=== PATIENT | female | born 1950 | race Caucasian/White ===

== ENCOUNTER 2020-06-19 16:46 | Inpatient (IN) | payer MEDICARE ==
[2020-06-19] MEDS ORDERED: SODIUM CHLORIDE 0.9% 1,000 ML IV STA (16:59)
[2020-06-19] MEDS ORDERED: IBUPROFEN 400 MG TAB PO STA (17:25)
--- NOTE | 2020-06-19 17:34 | XR ---
EXAMINATION TYPE: XR chest 1V portable DATE OF EXAM: 06/19/2020 COMPARISON: NONE HISTORY: Fever. Weakness. TECHNIQUE: Single view FINDINGS: There is some coarsening of interstitial pulmonary markings. Thoracic aorta is atheromatous . There are no hilar masses. There is no pleural effusion. There is no gross heart failure. Bony thor ax is intact. IMPRESSION: Interstitial pulmonary density consistent with pulmonary fibrosis. No obvious heart failu re.
[2020-06-19 17:58] LABS: Basophils % (A) 1 %; Eosinophils # (A) 0.1 k/uL (0-0.7); Eosinophils % (A) 1 %; HCT 39.4 % (34.0-46.0); HGB 13.5 gm/dL (11.4-16.0); Lymphocytes # (A) 1.5 k/uL (1.0-4.8); Lymphocytes % (A) 32 %; MCH 29.7 pg (25.0-35.0); MCHC 34.2 g/dL (31.0-37.0); MCV 86.7 fL (80.0-100.0); Mean Platelet Volume 7.7; Monocytes # (A) 0.2 k/uL (0-1.0); Monocytes % (A) 3 %; Neutrophils # (A) 2.8 k/uL (1.3-7.7); Neutrophils % (A) 61 %; Platelet Count 149 k/uL (150-450); RBC 4.54 m/uL (3.80-5.40); WBC 4.6 k/uL (3.8-10.6)
--- NOTE | 2020-06-19 18:07 | ED ---
Fever HPI - General Chief Complaint: Fever Stated Complaint: RUNNING A FEVER 101.4 WEAKNESS Source: patient Mode of arrival: ambulatory Limitations: no limitations - History of Present Illness Initial Comments: Patient is a 69 -year-old female with no past mental history presents emergency department with reported weakness, fever and cold-like symptoms. She states that her symptoms became presents today however speaking with her daughter she states that she's been sick for at least 5 days. She has had a nonproductive cough and fatigue. She denies any sick contacts with similar symptoms. No contact with covid positive people. Denies history of underlying lung conditi ons. She did take Tylenol 30 minutes prior to hospital arrival. No nausea, vomiting or diarrhea. No chest pain. No other alleviating, precipitating or modifying factors - Related Data Home Medications Medication Instructions Recorded Confirmed Acetaminophen Tab [Tylenol] 650 mg PO Q4H PRN 06/19/20 06/19/20 Ibuprofen [Motrin Ib] 400 mg PO Q8H PRN 06/19/20 06/19/20 Allergies Allergy/AdvReac Type Severity Reaction Status Date / Time No Known Allergies Allergy Verified 06/19/20 19:15 Review of Systems ROS Statement: Those systems with pertinent positive or pertinent negative responses have been documented in the HPI. ROS Other: All systems not noted in ROS Statement are negative. Past Medical History Past Medical History: No Reported History History of Any Multi-Drug Resistant Organisms: None Reported Past Surgical History: Section, Orthopedic Surgery Additional Past Surgical History / Comment(s): right knee surgery Past Psychological History: No Psychological Hx Reported Smoking Status: Never smoker Past Alcohol Use History: None Reported Past Drug Use History: None Reported General Exam Limitations: no limitations Course Vital Signs 06/19/20 06/19/20 06/19/20 16:50 18:00 19:00 Temperature 99.8 F H Pulse Rate 123 H 113 H 105 H Respiratory 22 22 20 Rate Blood Pressure 150/85 144/77 151/87 O2 Sat by Pulse 94 L 94 L 95 Oximetry 06/19/20 20:00 Temperature Pulse Rate 102 H Respiratory 20 Rate Blood Pressure 130/70 O2 Sat by Pulse 96 Oximetry Medical Decision Making - Medical Decision Making Upon arrival the patient is placed into room 19. A thorough history and physical exam is performed. Peripheral IV is established. Patient was given a liter bolus of normal saline. Laboratories studies are conducted. D-dimer 1 .04. Urinalysis is positive for nitrite and many white blood cell clumps. Coronavirus is detected. Chest x-ray demonstrates interstitial pulmonary densities consistent with pulmonary fibrosis. CT of the patient's chest demonstrates bilateral patchy pneumonia. No evidence of pulmonary embolism. Results are discussed the patient. She is saturating 92% on room air. Did recommend hospitalization for patient did agree to this. Spoke with Dr. García who agree to admit the patient. Pulm will be placed on consult. Patient awaiting a bed on the floor - Lab Data Result diagrams: 06/19/20 17:41 06/19/20 17:41 Lab Results 06/19/20 06/19/20 06/19/20 Range/Units 17:41 17:41 17:41 WBC 4.6 (3.8-10.6) k/uL RBC 4.54 (3.80-5.40) m/uL Hgb 13.5 (11.4-16.0) gm/dL Hct 39.4 (34.0-46.0) % MCV 86.7 (80.0-100.0) fL MCH 29.7 (25.0-35.0) pg MCHC 34.2 (31.0-37.0) g/dL RDW 13.0 (11.5-15.5) % Plt Count 149 L (150-450) k/uL MPV 7.7 Neutrophils % 61 % Lymphocytes % 32 % Monocytes % 3 % Eosinophils % 1 % Basophils % 1 % Neutrophils # 2.8 (1.3-7.7) k/uL Lymphocytes # 1.5 (1.0-4.8) k/uL Monocytes # 0.2 (0-1.0) k/uL Eosinophils # 0.1 (0-0.7) k/uL Basophils # 0.0 (0-0.2) k/uL PT 9.5 (9.0-12.0) sec INR 0.9 (<1.2) APTT 26.9 (22.0-30.0) sec D-Dimer 1.04 H (<0.60) mg/L FEU Sodium 137 (137-145) mmol/L Potassium 3.9 (3.5-5.1) mmol/L Chloride 106 (98-107) mmol/L Carbon Dioxide 26 (22-30) mmol/L Anion Gap 5 mmol/L BUN 13 (7-17) mg/dL Creatinine 0.66 (0.52-1.04) mg/dL Est GFR (CKD-EPI)AfAm >90 (>60 ml/min/1.73 sqM) Est GFR (CKD-EPI)NonAf >90 (>60 ml/min/1.73 sqM) Glucose 125 H (74-99) mg/dL Plasma Lactic Acid Hugo (0.7-2.0) mmol/L Calcium 9.0 (8.4-10.2) mg/dL Magnesium 1.8 (1.6-2.3) mg/dL Total Bilirubin 0.4 (0.2-1.3) mg/dL AST 34 (14-36) U/L ALT 22 (4-34) U/L Alkaline Phosphatase 98 (38-126) U/L Lactate Dehydrogenase 593 (313-618) U/L C-Reactive Protein 29.8 H (<10.0) mg/L Total Protein 6.6 (6.3-8.2) g/dL Albumin 3.7 (3.5-5.0) g/dL Urine Color Urine Appearance (Clear) Urine pH (5.0-8.0) Ur Specific [place] (1.001-1.035) Urine Protein (Negative) Urine Glucose (UA) (Negative) Urine Ketones (Negative) Urine Blood (Negative) Urine Nitrite (Negative) Urine Bilirubin (Negative) Urine Urobilinogen (<2.0) mg/dL Ur Leukocyte Esterase (Negative) Urine RBC (0-5) /hpf Urine WBC (0-5) /hpf Urine WBC Clumps (None) /hpf Ur Squamous Epith Cells (0-4) /hpf Urine Bacteria (None) /hpf Urine Mucus (None) /hpf Coronavirus (PCR) (Not Detectd) Influenza Type A RNA (Not Detectd) Influenza Type B (PCR) (Not Detectd) 06/19/20 06/19/20 06/19/20 Range/Units 17:41 17:41 17:41 WBC (3.8-10.6) k/uL RBC (3.80-5.40) m/uL Hgb (11.4-16.0) gm/dL Hct (34.0-46.0) % MCV (80.0-100.0) fL MCH (25.0-35.0) pg MCHC (31.0-37.0) g/dL RDW (11.5-15.5) % Plt Count (150-450) k/uL MPV Neutrophils % % Lymphocytes % % Monocytes % % Eosinophils % % Basophils % % Neutrophils # (1.3-7.7) k/uL Lymphocytes # (1.0-4.8) k/uL Monocytes # (0-1.0) k/uL Eosinophils # (0-0.7) k/uL Basophils # (0-0.2) k/uL PT (9.0-12.0) sec INR (<1.2) APTT (22.0-30.0) sec D-Dimer (<0.60) mg/L FEU Sodium (137-145) mmol/L Potassium (3.5-5.1) mmol/L Chloride (98-107) mmol/L Carbon Dioxide (22-30) mmol/L Anion Gap mmol/L BUN (7-17) mg/dL Creatinine (0.52-1.04) mg/dL Est GFR (CKD-EPI)AfAm (>60 ml/min/1.73 sqM) Est GFR (CKD-EPI)NonAf (>60 ml/min/1.73 sqM) Glucose (74-99) mg/dL Plasma Lactic Acid Hugo 0.9 (0.7-2.0) mmol/L Calcium (8.4-10.2) mg/dL Magnesium (1.6-2.3) mg/dL Total Bilirubin (0.2-1.3) mg/dL AST (14-36) U/L ALT (4-34) U/L Alkaline Phosphatase (38-126) U/L Lactate Dehydrogenase (313-618) U/L C-Reactive Protein (<10.0) mg/L Total Protein (6.3-8.2) g/dL Albumin (3.5-5.0) g/dL Urine Color Urine Appearance (Clear) Urine pH (5.0-8.0) Ur Specific [place] (1.001-1.035) Urine Protein (Negative) Urine Glucose (UA) (Negative) Urine Ketones (Negative) Urine Blood (Negative) Urine Nitrite (Negative) Urine Bilirubin (Negative) Urine Urobilinogen (<2.0) mg/dL Ur Leukocyte Esterase (Negative) Urine RBC (0-5) /hpf Urine WBC (0-5) /hpf Urine WBC Clumps (None) /hpf Ur Squamous Epith Cells (0-4) /hpf Urine Bacteria (None) /hpf Urine Mucus (None) /hpf Coronavirus (PCR) Detected A (Not Detectd) Influenza Type A RNA Not Detected (Not Detectd) Influenza Type B (PCR) Not Detected (Not Detectd) 06/19/20 Range/Units 17:43 WBC (3.8-10.6) k/uL RBC (3.80-5.40) m/uL Hgb (11.4-16.0) gm/dL Hct (34.0-46.0) % MCV (80.0-100.0) fL MCH (25.0-35.0) pg MCHC (31.0-37.0) g/dL RDW (11.5-15.5) % Plt Count (150-450) k/uL MPV Neutrophils % % Lymphocytes % % Monocytes % % Eosinophils % % Basophils % % Neutrophils # (1.3-7.7) k/uL Lymphocytes # (1.0-4.8) k/uL Monocytes # (0-1.0) k/uL Eosinophils # (0-0.7) k/uL Basophils # (0-0.2) k/uL PT (9.0-12.0) sec INR (<1.2) APTT (22.0-30.0) sec D-Dimer (<0.60) mg/L FEU Sodium (137-145) mmol/L Potassium (3.5-5.1) mmol/L Chloride (98-107) mmol/L Carbon Dioxide (22-30) mmol/L Anion Gap mmol/L BUN (7-17) mg/dL Creatinine (0.52-1.04) mg/dL Est GFR (CKD-EPI)AfAm (>60 ml/min/1.73 sqM) Est GFR (CKD-EPI)NonAf (>60 ml/min/1.73 sqM) Glucose (74-99) mg/dL Plasma Lactic Acid Hugo (0.7-2.0) mmol/L Calcium (8.4-10.2) mg/dL Magnesium (1.6-2.3) mg/dL Total Bilirubin (0.2-1.3) mg/dL AST (14-36) U/L ALT (4-34) U/L Alkaline Phosphatase (38-126) U/L Lactate Dehydrogenase (313-618) U/L C-Reactive Protein (<10.0) mg/L Total Protein (6.3-8.2) g/dL Albumin (3.5-5.0) g/dL Urine Color Yellow Urine Appearance Turbid H (Clear) Urine pH 5.5 (5.0-8.0) Ur Specific [place] 1.025 (1.001-1.035) Urine Protein 1+ H (Negative) Urine Glucose (UA) Negative (Negative) Urine Ketones Trace H (Negative) Urine Blood Small H (Negative) Urine Nitrite Positive H (Negative) Urine Bilirubin Negative (Negative) Urine Urobilinogen <2.0 (<2.0) mg/dL Ur Leukocyte Esterase Large H (Negative) Urine RBC 8 H (0-5) /hpf Urine WBC >182 H (0-5) /hpf Urine WBC Clumps Moderate H (None) /hpf Ur Squamous Epith Cells 1 (0-4) /hpf Urine Bacteria Many H (None) /hpf Urine Mucus Many H (None) /hpf Coronavirus (PCR) (Not Detectd) Influenza Type A RNA (Not Detectd) Influenza Type B (PCR) (Not Detectd) - EKG Data EKG Comments: Demonstrates sinus tachycardia with a ventricular rate of 107. ID interval 138. QRS 82. QTC 419. ST elevation in lead 3. No reciprocal changes. Disposition Clinical Impression: COVID-19, Acute respiratory insufficiency, UTI (urinary tract infection), Pyrexia Disposition: ADMITTED IP TO THIS HOSP Condition: Stable Is patient prescribed a controlled substance at d/c from ED?: No Decision to Admit Reason: Admit from EC Decision Date: 06/19/20 Decision Time: 20:13
[2020-06-19 18:08] LABS: Potassium 3.9 mmol/L (3.5-5.1)
[2020-06-19 18:10] LABS: ALT 22 U/L (4-34); AST 34 U/L (14-36); African American GFR (CKD) >90 (>60 ml/min/1.73 sqM); Albumin 3.7 g/dL (3.5-5.0); Alkaline Phosphatase 98 U/L (38-126); Anion Gap 5 mmol/L; Blood Urea Nitrogen 13 mg/dL (7-17); C Reactive Protein 29.8 mg/L (<10.0); Carbon Dioxide 26 mmol/L (22-30); Chloride 106 mmol/L (98-107); Glucose 125 mg/dL (74-99); LDH 593 U/L (313-618); Magnesium 1.8 mg/dL (1.6-2.3); Non-African American GFR(CKD) >90 (>60 ml/min/1.73 sqM); Sodium 137 mmol/L (137-145); Total Bilirubin 0.4 mg/dL (0.2-1.3); Total Protein 6.6 g/dL (6.3-8.2)
[2020-06-19 18:19] LABS: INR 0.9 (<1.2); Partial Thromboplastin Time 26.9 sec (22.0-30.0); Prothrombin Time 9.5 sec (9.0-12.0)
[2020-06-19 18:23] LABS: D-Dimer 1.04 mg/L FEU (<0.60)
[2020-06-19 19:07] LABS: Appearance,Urine Turbid (Clear); Bacteria,Urine Many /hpf; Bilirubin,Urine Negative (Negative); Blood,Urine Small (Negative); Color,Urine Yellow; Glucose,Urine (UA) Negative (Negative); Ketones,Urine Trace (Negative); Leukocyte Esterase,Urine Large (Negative); Mucus,Urine Many /hpf; Nitrite,Urine Positive (Negative); PH, Urine 5.5 (5.0-8.0); Protein,Urine 1+ (Negative); RBC,Urine 8 /hpf (0-5); Specific Gravity,Urine 1.025 (1.001-1.035); Squamous Epithelial Cell,Urine 1 /hpf (0-4); Urobilinogen,Urine <2.0 mg/dL (<2.0); WBC,Urine >182 /hpf (0-5)
[2020-06-19] MEDS ORDERED: cefTRIAXone IN SWFI 1,000 MG/10 ML SYRINGE IVP STA (19:44)
[2020-06-19] MEDS ORDERED: NALOXONE 0.4 MG/ML 1 ML VIAL IV PRN (20:13)
[2020-06-19] MEDS ORDERED: ACETAMINOPHEN TAB 325 MG TAB PO PRN (20:13)
--- NOTE | 2020-06-19 20:22 | CT ---
EXAMINATION TYPE: CT chest angio for PE DATE OF EXAM: 06/19/2020 COMPARISON: None HISTORY: c/o fever, fatigue, +covid CT DLP: 489.4 mGycm Automated exposure control for dose reduction was used. CONTRAST: Performed with IV Contrast, patient injected with 70cc mL of Isovue 370. There are 3-D post processed images. There is some patchy subpleural reticular pulmonary infiltrate in the lung mccarthy bilaterally. There is some coalescent density around the left pulmonary hilum. There are a few bronchial lymph nodes raimundo suring up to 1 cm. There is no mediastinal adenopathy. Thoracic aorta is intact. There is no aneurysm . There is normal contrast opacification of the pulmonary arteries. There are no filling defects. Bon y thorax is intact. There is spurring in the thoracic spine. IMPRESSION: Patchy bilateral pneumonia. No evidence of pulmonary embolism.
[2020-06-19] MEDS: dexAMETHasone 2 MG TAB PO SCH (21:05)
[2020-06-19] MEDS: SODIUM CHLORIDE 0.9% 1,000 ML IV SCH (21:06)
[2020-06-19] MEDS: ZINC SULFATE 220 MG CAP PO SCH (21:08)
[2020-06-19] MEDS: ASCORBIC ACID 500 MG TAB PO SCH (21:08)
[2020-06-19] MEDS: ENOXAPARIN 40 MG/0.4 ML SYRINGE SQ SCH (21:08)
[2020-06-19] MEDS ORDERED: MELATONIN 5 MG TABLET PO PRN (21:11)
--- NOTE | 2020-06-19 21:15 | P.HPIM ---
History of Present Illness H&P Date: 06/19/20 The patient is a 69 yo F with no known PMH who presented to the emergency room with complaints of fever, chills, fatigue, and congestion. Patient notes that her symptoms started on Friday 06/15, and have gradually progressed. The patient's daughter is an BUSINESS REPORTER who advised her to come to the emergency room. At time of interview, the patient notes feeling somewhat better. She denied any additional complaints. She denied nausea, vomiting, chest pain, shortness of breath, cough, palpitations. Denied abdominal pain, dysuria, urinary frequency, or diarrhea. Upon presentation to the emergency room, her vital signs were pulse 123, temperature 99.8F, BP 150/85, and SpO2 of 94% on room air. Labo ratory evaluation was remarkable for a platelet count of 149, d-dimer 1.04, UA consistent with UTI, CRP 29.8, and coronavirus PCR positive. Chest CTA was positive for patchy bilateral pneumonia with no evidence of PE. EKG revealed sinus tachycardia @ 107 bpm with no acute ST/T-wave changes noted as reviewed by me. Review of Systems Pertinent positives and negatives as discussed in HPI, a complete review of systems was performed and all other systems are negative. Past Medical History Past Medical History: No Reported History History of Any Multi-Drug Resistant Organisms: None Reported Past Surgical History: Section, Orthopedic Surgery Additional Past Surgical History / Comment(s): right knee surgery Past Psychological History: No Psychological Hx Reported Smoking Status: Never smoker Past Alcohol Use History: None Reported Past Drug Use History: None Reported Medications and Allergies Home Medications Medication Instructions Recorded Confirmed Type Acetaminophen Tab [Tylenol] 650 mg PO Q4H PRN 06/19/20 06/19/20 History Ibuprofen [Motrin Ib] 400 mg PO Q8H PRN 06/19/20 06/19/20 History Allergies Allergy/AdvReac Type Severity Reaction Status Date / Time No Known Allergies Allergy Verified 06/19/20 19:15 Physical Exam Vitals: Vital Signs Temp Pulse Resp BP Pulse Ox 06/19/20 20:00 102 H 20 130/70 96 06/19/20 19:00 105 H 20 151/87 95 06/19/20 18:00 113 H 22 144/77 94 L 06/19/20 16:50 99.8 F H 123 H 22 150/85 94 L Intake and Output 06/19/20 06/19/20 06/19/20 06:59 14:59 22:59 Other: Weight 111.13 kg General: non toxic, no distress, appears at stated age, morbidly obese Derm: no unusual rashes/lesions no unusual ecchymoses, warm, dry Head: atraumatic, normocephalic, symmetric Eyes: EOMI, no lid lag, anicteric sclera, pupils equal round reactive to light ENT: Nose and ears atraumatic, no thrush, no pharyngeal erythema Neck: No thyromegaly, no cervical lymphadenopathy, trachea midline, supple Mouth: no lip lesion, mucus membranes moist Cardiovascular: S1S2 reg, no murmur, positive posterior tibial pulse bilateral, no edema, capillary refill less than 2 seconds Lungs: Scattered rhonchi with no wheezing appreciated, no accessory muscle use Abdominal: soft, nontender to palpation, no guarding, no appreciable organomegaly, normal bowel sounds Ext: no gross muscle atrophy, muscle strength 5 out of 5 in all 4 extremities grossly, no contractures, bilateral lower extremity varicosities Neuro: CN II-XI grossly intact, light touch intact all 4 extremities, finger to nose within normal limits, Psych: Alert, oriented, appropriate affect Results CBC & Chem 7: 06/19/20 17:41 06/19/20 17:41 Labs: Abnormal Lab Results - Last 24 Hours (Table) 06/19/20 06/19/20 06/19/20 Range/Units 17:41 17:41 17:41 Plt Count 149 L (150-450) k/uL D-Dimer 1.04 H (<0.60) mg/L FEU Glucose 125 H (74-99) mg/dL C-Reactive Protein 29.8 H (<10.0) mg/L Urine Appearance (Clear) Urine Protein (Negative) Urine Ketones (Negative) Urine Blood (Negative) Urine Nitrite (Negative) Ur Leukocyte Esterase (Negative) Urine RBC (0-5) /hpf Urine WBC (0-5) /hpf Urine WBC Clumps (None) /hpf Urine Bacteria (None) /hpf Urine Mucus (None) /hpf Coronavirus (PCR) (Not Detectd) 06/19/20 06/19/20 Range/Units 17:41 17:43 Plt Count (150-450) k/uL D-Dimer (<0.60) mg/L FEU Glucose (74-99) mg/dL C-Reactive Protein (<10.0) mg/L Urine Appearance Turbid H (Clear) Urine Protein 1+ H (Negative) Urine Ketones Trace H (Negative) Urine Blood Small H (Negative) Urine Nitrite Positive H (Negative) Ur Leukocyte Esterase Large H (Negative) Urine RBC 8 H (0-5) /hpf Urine WBC >182 H (0-5) /hpf Urine WBC Clumps Moderate H (None) /hpf Urine Bacteria Many H (None) /hpf Urine Mucus Many H (None) /hpf Coronavirus (PCR) Detected A (Not Detectd) Assessment and Plan Plan: COVID-19 pneumonitis with acute hypoxic respiratory failure -C/w Dexamethasone -Vitamin C, D, Zinc, and Melatonin -Isolation precautions -IVFs -Pulmonary consult for consideration of Remdesivir -Monitor inflammatory markers -Supplemental oxygen Abnormal UA, likely colonization as patient with no urinary or abdominal compla ints -Monitor for now Thrombocytopenia -Baseline not available -Monitor CBC for now DVT prophylaxis -Lovenox The patient is admitted with an anticipated less than 2 midnight stay for evaluation of COVID-19 pneumonia CODE STATUS: Full Code Discussed with: Patient Anticipated discharge date: in am Anticipated discharge place: Home A total of 35 minutes was spent on the care of this complex patient more than 50% of the time was spent in counseling and care coordination.
[2020-06-20] MEDS: SODIUM CHLORIDE 0.9% 1,000 ML IV SCH ×2 (05:17→13:20)
[2020-06-20 07:21] LABS: Basophils % (A) 0 %; Eosinophils % (A) 1 %; HGB 13.5 gm/dL (11.4-16.0); Lymphocytes # (A) 0.7 k/uL (1.0-4.8); Lymphocytes % (A) 23 %; MCH 29.8 pg (25.0-35.0); MCHC 33.8 g/dL (31.0-37.0); Mean Platelet Volume 7.6; Monocytes # (A) 0.1 k/uL (0-1.0); Monocytes % (A) 2 %; Neutrophils # (A) 2.2 k/uL (1.3-7.7); Neutrophils % (A) 72 %; Platelet Count 151 k/uL (150-450); RBC 4.54 m/uL (3.80-5.40)
[2020-06-20] MEDS: ENOXAPARIN 40 MG/0.4 ML SYRINGE SQ SCH (07:40)
[2020-06-20] MEDS: ZINC SULFATE 220 MG CAP PO SCH (07:40)
[2020-06-20] MEDS: ASCORBIC ACID 500 MG TAB PO SCH (07:40)
[2020-06-20] MEDS: dexAMETHasone 2 MG TAB PO SCH (07:40)
[2020-06-20] MEDS: CHOLECALCIFEROL 400 UNIT TAB PO SCH (07:41)
[2020-06-20] MEDS: ALBUTEROL HFA INHALER INHALATION SCH ×4 (08:50→19:29)
--- NOTE | 2020-06-20 11:20 | P.PN ---
Subjective Progress Note Date: 06/20/20 Principal diagnosis: COV ID 19 pneumonia Patient seen and examined at bedside. Patient states that her breathing has improved since her hospital admission. Patient still requiring oxygen via nasal cannula at 2 L. Blood pressure continues to be elevated today. Objective - Vital Signs Vital signs: Vital Signs Temp 98.2 F 06/20/20 09:53 Pulse 91 06/20/20 09:53 Resp 22 06/20/20 09:53 BP 161/79 06/20/20 09:53 Pulse Ox 96 06/20/20 09:53 Intake & Output 06/19/20 06/20/20 06/20/20 18:59 06:59 18:59 Intake Total 1470 300 Balance 1470 300 Weight 111.13 kg 111.13 kg Intake: Intake, IV Titration 1170 Amount Sodium Chloride 0.9% 1, 1170 000 ml @ 130 mls/hr IV . [id number] [facility] Rx#:[id number] Oral 300 300 Other: Voiding Method Toilet # Voids 1 - Exam General: [non toxic], [no distress], [appears at stated age] Derm: [warm], [dry] Head: [atraumatic], [normocephalic], [symmetric] Eyes: [EOMI], [no lid lag], [anicteric sclera] Mouth: [no lip lesion], [mucus membranes moist] Cardiovascular: [S1S2 reg], [no murmur], [positive posterior tibial pulse bilateral], Lungs: [CTA bilateral], [no rhonchi, no rales] , [no accessory muscle use] Abdominal: [soft], [ nontender to palpation], [no guarding], [no appreciable organomegaly] Ext: [no gross muscle atrophy], [no edema], [no contractures] Neuro: [ CN II-XI grossly intact], [no focal neuro deficits] Psych: [Alert], [oriented], [appropriate affect] - Labs CBC & Chem 7: 06/20/20 06:59 06/19/20 17:41 Labs: Abnormal Lab Results - Last 24 Hours (Table) 06/19/20 06/19/20 06/19/20 Range/Units 17:41 17:41 17:41 WBC (3.8-10.6) k/uL Plt Count 149 L (150-450) k/uL Lymphocytes # (1.0-4.8) k/uL D-Dimer 1.04 H (<0.60) mg/L FEU Glucose 125 H (74-99) mg/dL Ferritin 468.0 H (10.0-291.0) ng/mL C-Reactive Protein 29.8 H (<10.0) mg/L Urine Appearance (Clear) Urine Protein (Negative) Urine Ketones (Negative) Urine Blood (Negative) Urine Nitrite (Negative) Ur Leukocyte Esterase (Negative) Urine RBC (0-5) /hpf Urine WBC (0-5) /hpf Urine WBC Clumps (None) /hpf Urine Bacteria (None) /hpf Urine Mucus (None) /hpf Coronavirus (PCR) (Not Detectd) 06/19/20 06/19/20 06/20/20 Range/Units 17:41 17:43 06:59 WBC 3.0 L (3.8-10.6) k/uL Plt Count (150-450) k/uL Lymphocytes # 0.7 L (1.0-4.8) k/uL D-Dimer (<0.60) mg/L FEU Glucose (74-99) mg/dL Ferritin (10.0-291.0) ng/mL C-Reactive Protein (<10.0) mg/L Urine Appearance Turbid H (Clear) Urine Protein 1+ H (Negative) Urine Ketones Trace H (Negative) Urine Blood Small H (Negative) Urine Nitrite Positive H (Negative) Ur Leukocyte Esterase Large H (Negative) Urine RBC 8 H (0-5) /hpf Urine WBC >182 H (0-5) /hpf Urine WBC Clumps Moderate H (None) /hpf Urine Bacteria Many H (None) /hpf Urine Mucus Many H (None) /hpf Coronavirus (PCR) Detected A (Not Detectd) Microbiology - Last 24 Hours (Table) 06/19/20 17:43 Urine Culture - Preliminary Urine,Voided Assessment and Plan Assessment: COVID-19 pneumonitis with acute hypoxic respiratory failure -C/w Dexamethasone -Vitamin C, D, Zinc, and Melatonin -Isolation precautions -IVFs -Pulmonary consult for consideration of Remdesivir -Monitor inflammatory markers -Supplemental oxygen Hypertension likely secondary to steroids -Add Norvasc 2.5 mg by mouth daily Abnormal UA, - IV Rocephin -Await urine culture Thrombocytopenia -Baseline not available -Monitor CBC for now DVT prophylaxis -Lovenox GI prophylaxis -pepcid a daily A.m. labs PT OT The patient is admitted with an anticipated less than 2 midnight stay for evaluation of COVID-19 pneumonia CODE STATUS: Full Code Discussed with: Patient Anticipated discharge date: in am Anticipated discharge place: Home A total of 35 minutes was spent on the care of this complex patient more than 50% of the time was spent in counseling and care coordination. Time with Patient: Greater than 30
[2020-06-20 12:16] LABS: African American GFR (CKD) 103.2 (60.0-200.0); Anion Gap 6.3 mmol/L (4.00-12.00); BUN/Creat Ratio 14.29 Ratio (12.00-20.00); C Reactive Protein 3.9 mg/dL (0.0-0.8); Calcium 8.6 mg/dL (8.7-10.3); Carbon Dioxide 24.7 mmol/L (21.6-31.8)
[2020-06-20] MEDS: amLODIPine 2.5 MG TAB PO SCH (12:17)
[2020-06-20] MEDS: FAMOTIDINE 20 MG TAB PO SCH (12:17)
[2020-06-20] MEDS ORDERED: REMDESIVIR 200 MG in SODIUM CHLORIDE 0.9% 250 ML IVPB ONE (13:00)
--- NOTE | 2020-06-20 15:41 | P.CNPUL ---
History of Present Illness Consult date: 06/20/20 Requesting physician: Johanne Benoit Reason for consult: dyspnea Chief complaint: Weakness, fever, shortness of breath History of present illness: This is a very pleasant 69-year-old female patient with no significant past medical history on no home prescribed medications. No primary care provider. She presented to the emergency room yesterday after a five-day history of weakness, fever, cold like symptoms. Temperature 101.4. She's had a nonproductive cough. Denies any contact with anyone with CoVID 19 infection. Chest x-ray shows coarse interstitial markings. CAT scan ruled out pulmonary embolism. There is again noted patchy bilateral pneumonia. White count 3.0. Hemoglobin 13.5. Lymphocytes 0.7. D-dimer 1.04. Sodium 140. Potassium 4.0. Creatinine 0.7. Glucose 195. LDH 593. C-reactive protein 29.8. Urinalysis with large leukoesterase many bacteria. Influenza screen negative. Coronavirus detected. She is seen today in consultation on the regular medical floor. She is awake and alert in no acute distress. Maintain good O2 saturations in the mid 90s on 2 L/m per nasal cannula. Currently afebrile. She's been initiated on ceftriaxone, dexamethasone, Lovenox, Pepcid, melatonin, vitamin supplements 0.9 normal saline at 130 ML's per hour. We will also initiate Remdesivir and convalescent plasma. Review of Systems REVIEW OF SYSTEMS: CONSTITUTIONAL: Generalized weakness, fatigue. Denies any recent significant weight loss or weight gain. EYES: Denies change in vision. EARS, NOSE, MOUTH, THROAT: Denies headaches, denies sore throat. CARDIOVASCULAR: Denies chest pain, palpitations or syncopal episodes. RESPIRATORY: Positive for shortness of breath, cough, congestion no hemoptysis. GASTROINTESTINAL: Denies change in appetite, denies abdominal pain GENITOURINARY: Denies hematuria, denies infections. MUSKULOSKELETAL: Denies pain, denies swelling. INTEGUMENTARY: Denies rash, denies eczema. NEUROLOGICAL: Denies recent memory loss, no recent seizure activity. PSYCHIATRIC: Denies anxiety, denies depression. HEMATOLOGIC/LYMPHATIC: Denies anemia, denies enlarged lymph nodes. Past Medical History Past Medical History: No Reported History History of Any Multi-Drug Resistant Organisms: None Reported Past Surgical History: Section, Orthopedic Surgery Additional Past Surgical History / Comment(s): right knee surgery Past Anesthesia/Blood Transfusion Reactions: No Reported Reaction Past Psychological History: No Psychological Hx Reported Smoking Status: Never smoker Past Alcohol Use History: None Reported Past Drug Use History: None Reported Medications and Allergies Home Medications Medication Instructions Recorded Confirmed Type Acetaminophen Tab [Tylenol] 650 mg PO Q4H PRN 06/19/20 06/19/20 History Ibuprofen [Motrin Ib] 400 mg PO Q8H PRN 06/19/20 06/19/20 History Allergies Allergy/AdvReac Type Severity Reaction Status Date / Time No Known Allergies Allergy Verified 06/19/20 19:15 Physical Exam Vitals: Vital Signs Temp Pulse Pulse Resp BP BP Pulse Ox 06/20/20 09:53 98.2 F 91 22 161/79 96 06/20/20 05:51 97.9 F 93 18 158/77 96 06/20/20 02:04 97.9 F 67 16 119/75 96 06/19/20 22:09 98.2 F 99 18 136/80 95 06/19/20 21:19 98.9 F 92 20 131/80 96 06/19/20 20:00 102 H 20 130/70 96 06/19/20 19:00 105 H 20 151/87 95 06/19/20 18:00 113 H 22 144/77 94 L 06/19/20 16:50 99.8 F H 123 H 22 150/85 94 L Intake and Output 06/20/20 06/20/20 06/20/20 06:59 14:59 22:59 Intake Total 1470 600 Balance 1470 600 Intake: Intake, IV Titration 1170 Amount Sodium Chloride 0.9% 1, 1170 000 ml @ 130 mls/hr IV . Q7H42M [facility] Rx#:[id number] Oral 300 600 Other: Voiding Method Toilet # Voids 1 GENERAL EXAM: Alert, very pleasant 69-year-old female patient, on 2 L nasal cannula, comfortable in no apparent distress. HEAD: Normocephalic. EYES: Normal reaction of pupils, equal size. NOSE: Clear with pink turbinates. THROAT: No erythema or exudates. NECK: No masses, no JVD. CHEST: No chest wall deformity. LUNGS: Equal air entry with basilar crackles. CVS: S1 and S2 normal with no audible murmur, regular rhythm. ABDOMEN: No hepatosplenomegaly, normal bowel sounds, no guarding or rigidity. SPINE: No scoliosis or deformity SKIN: No rashes CENTRAL NERVOUS SYSTEM: No focal deficits, tone is normal in all 4 extremities. EXTREMITIES: There is no peripheral edema. No clubbing, no cyanosis. Peripheral pulses are intact. Results - Laboratory Findings CBC and BMP: 06/20/20 06:59 06/20/20 06:59 PT/INR, D-dimer PT 9.5 sec (9.0-12.0) 06/19/20 17:41 INR 0.9 (<1.2) 06/19/20 17:41 D-Dimer 1.04 mg/L FEU (<0.60) H 06/19/20 17:41 Abnormal lab findings: Abnormal Labs 06/19/20 06/19/20 06/19/20 17:41 17:41 17:41 WBC Plt Count 149 L Lymphocytes # D-Dimer 1.04 H Glucose 125 H Calcium Ferritin 468.0 H C-Reactive Protein 29.8 H Urine Appearance Urine Protein Urine Ketones Urine Blood Urine Nitrite Ur Leukocyte Esterase Urine RBC Urine WBC Urine WBC Clumps Urine Bacteria Urine Mucus Coronavirus (PCR) 06/19/20 06/19/20 06/20/20 17:41 17:43 06:59 WBC 3.0 L Plt Count Lymphocytes # 0.7 L D-Dimer Glucose Calcium Ferritin C-Reactive Protein Urine Appearance Turbid H Urine Protein 1+ H Urine Ketones Trace H Urine Blood Small H Urine Nitrite Positive H Ur Leukocyte Esterase Large H Urine RBC 8 H Urine WBC >182 H Urine WBC Clumps Moderate H Urine Bacteria Many H Urine Mucus Many H Coronavirus (PCR) Detected A 06/20/20 06:59 WBC Plt Count Lymphocytes # D-Dimer Glucose 195 H Calcium 8.6 L Ferritin C-Reactive Protein 3.9 H Urine Appearance Urine Protein Urine Ketones Urine Blood Urine Nitrite Ur Leukocyte Esterase Urine RBC Urine WBC Urine WBC Clumps Urine Bacteria Urine Mucus Coronavirus (PCR) - Diagnostic Findings Chest x-ray: image reviewed CT scan - chest: image reviewed Assessment and Plan Assessment: 1 Acute hypoxic respiratory failure secondary to acute CoVID 19 pneumonitis 2 Urinary tract infection, culture pending Plan: The patient was seen and evaluated by Dr. Bhumi Chest x-ray, CAT scans and labs reviewed We will go ahead and initiate the patient on Remdesivir Give 2 units of convalescent plasma Continue dexamethasone, Lovenox, Pepcid, melatonin, vitamin C, D, zinc Repeat chest x-ray and inflammatory markers in the a.m. We will continue to follow and make further recommendations based on her clinical status I, the cosigning physician, performed a history & physical examination of the patient. Lungs sounds with bibasilar crackles. Maintaining good O2 saturations in the 90s on 2 L/m per nasal cannula. I discussed the assessment and plan of care with my nurse practitioner, Luisa Colon. I attest to the above consultation as dictated by her. Time with Patient: Greater than 30
[2020-06-21] MEDS: SODIUM CHLORIDE 0.9% 1,000 ML IV SCH ×2 (00:13→05:40)
[2020-06-21 07:05] LABS: Basophils % (A) 1 %; Eosinophils % (A) 1 %; HGB 13.1 gm/dL (11.4-16.0); Lymphocytes # (A) 1.3 k/uL (1.0-4.8); Lymphocytes % (A) 22 %; MCH 29.9 pg (25.0-35.0); MCHC 33.7 g/dL (31.0-37.0); MCV 88.7 fL (80.0-100.0); Mean Platelet Volume 7.9; Monocytes # (A) 0.2 k/uL (0-1.0); Monocytes % (A) 3 %; Neutrophils # (A) 4.3 k/uL (1.3-7.7); Neutrophils % (A) 73 %; Platelet Count 152 k/uL (150-450); RDW 13.3 % (11.5-15.5); WBC 5.8 k/uL (3.8-10.6)
[2020-06-21] MEDS: ALBUTEROL HFA INHALER INHALATION SCH ×3 (08:33→16:04)
[2020-06-21] MEDS: FAMOTIDINE 20 MG TAB PO SCH (08:49)
[2020-06-21] MEDS: ZINC SULFATE 220 MG CAP PO SCH (08:49)
[2020-06-21] MEDS: amLODIPine 2.5 MG TAB PO SCH (08:49)
[2020-06-21] MEDS: dexAMETHasone 2 MG TAB PO SCH (08:49)
[2020-06-21] MEDS: ASCORBIC ACID 500 MG TAB PO SCH (08:49)
[2020-06-21] MEDS: ENOXAPARIN 40 MG/0.4 ML SYRINGE SQ SCH (08:49)
[2020-06-21] MEDS: CHOLECALCIFEROL 400 UNIT TAB PO SCH (08:49)
[2020-06-21 11:06] LABS: African American GFR (CKD) 87.8 (60.0-200.0); Albumin 3.8 g/dL (3.80-4.90); Albumin/Globulin Ratio 1.9 (1.60-3.17); Anion Gap 6.1 mmol/L (4.00-12.00); BUN/Creat Ratio 17.5 Ratio (12.00-20.00); C Reactive Protein 2.5 mg/dL (0.0-0.8); Calcium 8.5 mg/dL (8.7-10.3); Carbon Dioxide 27.9 mmol/L (21.6-31.8); Non-African American GFR(CKD) 75.8 (60.0-200.0); Potassium 3.7 mmol/L (3.5-5.5); Total Bilirubin 0.3 mg/dL (0.2-1.2); Total Protein 5.8 g/dL (6.2-8.2)
[2020-06-21] MEDS ORDERED: REMDESIVIR 100 MG in SODIUM CHLORIDE 0.9% 250 ML IVPB SCH (13:00)
--- NOTE | 2020-06-21 14:35 | P.DS ---
Providers Date of admission: 06/19/20 20:13 Expected date of discharge: 06/21/20 Attending physician: Tony García MD Consults: 06/19/20 20:14 Consult Physician Urgent Consulting Provider: Sarahi Tripathi Consult Reason/Comments: covid pneumonia Do you want consulting provider notified?: Yes Primary care physician: Moncho Paiz MD Hospital Course: Admitting diagnoses: COV ID19 pneumonitis with acute hypoxic respiratory failure Discharge diagnoses COV ID19 pneumonitis with acute hypoxic respiratory failure Hypertension The patient is a 69 yo F with no known PMH who presented to the emergency room with complaints of fever, chills, fatigue, and congestion. Patient notes that her symptoms started on Friday 06/15, and have gradually progressed. The patient's daughter is an [employer] who advised her to come to the emergency room. At time of interview, the patient notes feeling somewhat better. She denied any additional complaints. She denied nausea, vomiting, chest pain, shortness of breath, cough, palpitations. Denied abdominal pain, dysuria, urinary frequency, or diarrhea. Upon presentation to the emergency room, her vital signs were pulse 123, temperature 99.8F, BP 150/85, and SpO2 of 94% on room air. Laboratory evaluation was remarkable for a platelet count of 149, d-dimer 1.04, UA consistent with UTI, CRP 29.8, and coronavirus PCR positive. Chest CTA was positive for patchy bilateral pneumonia with no evidence of PE. EKG revealed sinus tachycardia @ 107 bpm with no acute ST/T-wave changes. Patient was placed on IV antibiotics for possible UTI. Urine cultures came back as normal genital german. Antibiotics discontinued. Patient improved during hospital stay with oxygen and steroids. Pulmonary did administer remdesivir 2 doses. Patient's blood pressure was addressed with Norvasc 2.5 mg by mouth daily. She is to follow-up with her primary care physician for further management. Patient's respiratory status significantly proved and patient be discharged today. Vitals temperature 98.2 orally heart rate 109 blood pressure 133/70 oxygen saturation 93% on room air His clinical exam: General: [non toxic], [no distress], [appears at stated age] Derm: [warm], [dry] Head: [atraumatic], [normocephalic], [symmetric] Eyes: [EOMI], [no lid lag], [anicteric sclera] Mouth: [no lip lesion], [mucus membranes moist] Cardiovascular: [S1S2 reg], [no murmur], [positive posterior tibial pulse bilateral], Lungs: [CTA bilateral], [no rhonchi, no rales] , [no accessory muscle use] Abdominal: [soft], [ nontender to palpation], [no guarding], [no appreciable organomegaly] Ext: [no gross muscle atrophy], [no edema], [no contractures] Neuro: [ CN II-XI grossly intact], [no focal neuro deficits] Psych: [Alert], [oriented], [appropriate affect] Condition state Activity as tolerated Diet cardiac Follow-up with PCP within one week Patient is to continue her quarantine to total 2 weeks from diagnosis with COV ID 19 Patient Condition at Discharge: Stable Plan - Discharge Summary Discharge Rx Participant: Yes New Discharge Prescriptions: New amLODIPine [Norvasc] 2.5 mg PO DAILY 30 Days #30 tab Continue Ibuprofen [Motrin Ib] 400 mg PO Q8H PRN PRN Reason: Fever Acetaminophen Tab [Tylenol] 650 mg PO Q4H PRN PRN Reason: Fever Discharge Medication List Acetaminophen Tab [Tylenol] 650 mg PO Q4H PRN 06/19/20 [History] Ibuprofen [Motrin Ib] 400 mg PO Q8H PRN 06/19/20 [History] amLODIPine [Norvasc] 2.5 mg PO DAILY 30 Days #30 tab 06/21/20 [Rx] Follow up Appointment(s)/Referral(s): Moncho Paiz MD [Primary Care Provider] - 1-2 days Activity/Diet/Wound Care/Special Instructions: Please monitor blood pressure at home. 30 day supply of amlodipine 2.5mg daily given. reassess with pcp in 1-2 weeks. Discharge Disposition: HOME SELF-CARE
[2020-06-21 14:45] VITALS: BP 128/66; PULSE 108; RESP 18; TEMP 98.1
--- NOTE | 2020-06-21 14:47 | P.PN ---
Subjective Progress Note Date: 06/21/20 Principal diagnosis: Covid 19 pneumonitis This is a very pleasant 69-year-old female patient with no significant past medical history on no home prescribed medications. No primary care provider. She presented to the emergency room yesterday after a five-day history of weakness, fever, cold like symptoms. Temperature 101.4. She's had a nonproductive cough. Denies any contact with anyone with CoVID 19 infection. Chest x-ray shows coarse interstitial markings. CAT scan ruled out pulmonary embolism. There is again noted patchy bilateral pneumonia. White count 3.0. Hemoglobin 13.5. Lymphocytes 0.7. D-dimer 1.04. Sodium 140. Potassium 4.0. Creatinine 0.7. Glucose 195. LDH 593. C-reactive protein 29.8. Urinalysis with large leukoesterase many bacteria. Influenza screen negative. Coronavirus detected. She is seen today in consultation on the regular medical floor. She is awake and alert in no acute distress. Maintain good O2 saturations in the mid 90s on 2 L/m per nasal cannula. Currently afebrile. She's been initiated on ceftriaxone, dexamethasone, Lovenox, Pepcid, melatonin, vitamin supplements 0.9 normal saline at 130 ML's per hour. We will also initiate Remdesivir and convalescent plasma. On 06/21/2020 patient seen in follow-up on [facility], she is calm and comfortable, she is currently on room air, and a pulse ox of 91-93%, hemodynamically she stable, she's been afebrile, had no acute events overnight, patient is ambulating about the room, tolerating activity quite well, no cough, no chest discomfort, he was started on Remdesivir treatment, today is day 2 of treatment, 2 units of convalescent plasma were ordered however because of the patient's blood type, the plasma is not available, and was still awaiting availability. In the meantime clinically patient has remained stable, no worsening dyspnea, vital signs have remained stable, she denies any headaches, no nausea vomiting and diarrhea, she is on Lovenox for anticoagulation, she is on Rocephin for urinary tract infection. His labs have been reviewed, showing white blood cell count 5.8, hemoglobin 13.1, lymphocyte count was 1.3, d-dimer 0.76, electrolytes and renal profile were unremarkable Objective - Vital Signs Vital signs: Vital Signs Temp 98.2 F 06/21/20 10:00 Pulse 109 H 06/21/20 12:56 Resp 20 06/21/20 10:00 BP 133/70 06/21/20 10:00 Pulse Ox 93 L 06/21/20 12:56 Intake & Output 06/20/20 06/21/20 06/21/20 18:59 06:59 18:59 Intake Total 600 1860 Balance 600 1860 Intake: Intake, IV Titration 1560 Amount Sodium Chloride 0.9% 1, 1560 000 ml @ 130 mls/hr IV . Q7H42M [facility] Rx#:[id number] Oral 600 300 Other: Voiding Method Toilet # Voids 4 1 - Exam GENERAL EXAM: Alert, very pleasant, 69-year-old white female, on room air with pulse ox of 93% comfortable in no apparent distress. HEAD: Normocephalic/atraumatic. EYES: Normal reaction of pupils, equal size. Conjunctiva pink, sclera white. NOSE: Clear with pink turbinates. THROAT: No erythema or exudates. NECK: No masses, no JVD, no thyroid enlargement, no adenopathy. CHEST: No chest wall deformity. Symmetrical expansion. LUNGS: Equal air entry with no crackles, wheeze, rhonchi or dullness. CVS: Regular rate and rhythm, normal S1 and S2, no gallops, no murmurs, no rubs ABDOMEN: Soft, nontender. No hepatosplenomegaly, normal bowel sounds, no guarding or rigidity. EXTREMITIES: No clubbing, no edema, no cyanosis, 2+ pulses and upper and lower extremities. MUSCULOSKELETAL: Muscle strength and tone normal. SPINE: No scoliosis or deformity SKIN: No rashes CENTRAL NERVOUS SYSTEM: Alert and oriented -3. No focal deficits, tone is normal in all 4 extremities. PSYCHIATRIC: Alert and oriented -3. Appropriate affect. Intact judgment and insight. - Labs CBC & Chem 7: 06/21/20 06:47 06/21/20 06:47 Labs: Abnormal Lab Results - Last 24 Hours (Table) 06/21/20 06/21/20 Range/Units 06:47 06:47 D-Dimer 0.76 H (<0.60) mg/L FEU Glucose 126 H (70-110) mg/dL Calcium 8.5 L (8.7-10.3) mg/dL C-Reactive Protein 2.5 H (0.0-0.8) mg/dL Total Protein 5.8 L (6.2-8.2) g/dL Microbiology - Last 24 Hours (Table) 06/19/20 20:05 Blood Culture - Preliminary Blood No Growth after 24 hours 06/19/20 17:41 Blood Culture - Preliminary Blood No Growth after 24 hours 06/19/20 17:43 Urine Culture - Preliminary Urine,Voided Gram Neg Bacilli Assessment and Plan Plan: Assessment: #1. Acute hypoxic respiratory failure secondary to acute coronary 19 pneumonitis, resolved, she is on room air, maintaining saturations above 90% #2. Acute urinary tract infection, urinary culture showing gram-negative bacilli #3. Never smoker Plan: Continue current medical treatment, patient can be switched to oral antibiotics, no worsening dyspnea, breathing comfortably, she is on room air, tolerating ad mission, no chest discomfort, from pulmonary perspective we can cancel convalescent plasma, and patient does not need to finish her Remdesivir treatment, she can be considered for discharge home today on oral Decadron for a total of 10 days including the days in the hospital, and vitamin C, vitamin D, and zinc supplement. She can follow up with Dr. Reyes in the office in the 2-3 weeks I performed a history & physical examination of the patient and discussed their management with my nurse practitioner, Jessenia Cee. I reviewed the nurse practitioner's note and agree with the documented findings and plan of care. Lung sounds are positive for diminished breath sounds. The findings and the impression was discussed with the patient. I attest to the documentation by the nurse practitioner. Time with Patient: Less than 30
[2020-06-21] MEDS ORDERED: LEVOFLOXACIN 500 MG TAB PO SCH (17:00)
== END 2020-06-21 17:15 | disposition home or self-care (01) | DRG 177 ==
LOC: EC 16:46 → 4SSUR 20:13
PROVIDERS: ADMIT Internal Medicine; ATTEND Internal Medicine
PROC: XW033E5 Introduction of Remdesivir Anti-infective into Peripheral Vein, Percutaneous Approach, New Technology Group 5 (ICD-10-PCS; principal; 2020-06-19)
DX: U07.1 COVID-19 (principal); J12.89 Other viral pneumonia; J96.01 Acute respiratory failure with hypoxia; N39.0 Urinary tract infection, site not specified; J84.10 Pulmonary fibrosis, unspecified; D69.6 Thrombocytopenia, unspecified; I10 Essential (primary) hypertension; T38.0X5A Adverse effect of glucocorticoids and synthetic analogues, initial encounter; Z98.891 History of uterine scar from previous surgery; Z98.890 Other specified postprocedural states
CPT/HCPCS: 36415; 71045; 71275; 80048; 80053; 81001; 82728; 83605; 83615; 83735; 84145; 85025; 85379; 85610; 85730; 86140; 86850; 86900; 86901; 87040; 87077; 87086; 87186; 87502; 87635; 93005; 94640; 96361; 96372; 96374; 99285